=== PATIENT | male | born 1975 | race African-American/Black ===

== ENCOUNTER 2017-02-10 18:11 | Emergency (ER) | payer MEDICAID ==
[~2017-02-10] VITALS: Ht 180.3 cm; Wt 122.7 kg
[2017-02-10 19:58] VITALS: BP 134/88
== END 2017-02-10 20:01 | disposition home or self-care (01) ==
LOC: EMS 18:12
DX: R00.2 Palpitations (principal); J45.909 Unspecified asthma, uncomplicated; I10 Essential (primary) hypertension; F15.10 Other stimulant abuse, uncomplicated; F17.210 Nicotine dependence, cigarettes, uncomplicated
CPT/HCPCS: 93005; 99285

== ENCOUNTER 2020-07-23 14:18 | Emergency (ER) | payer MEDICAID, OTHER ==
[~2020-07-23] VITALS: Ht 180.3 cm; Wt 137.3 kg
[2020-07-23] MEDS ORDERED: PERTUSS(ACELL),DIPH,TET VAC/PF 0.5 ML VIAL IM ONE (15:00)
[2020-07-23] MEDS ORDERED: BUPIVACAINE HCL/PF 0.25% 10 ML VIAL INJ ONE (15:45)
[2020-07-23] MEDS ORDERED: LIDOCAINE 1% 10 ML VIAL INJ ONE (15:45)
[2020-07-23] MEDS ORDERED: BACITRACIN 0.9 GM PACKET OINTMENT TP ONE (16:15)
[2020-07-23 16:35] VITALS: BP 123/78
== END 2020-07-23 16:43 | disposition home or self-care (01) ==
LOC: EMS 14:20
DX: S61.211A Laceration without foreign body of left index finger without damage to nail, initial encounter (principal); J45.909 Unspecified asthma, uncomplicated; F17.290 Nicotine dependence, other tobacco product, uncomplicated; I10 Essential (primary) hypertension; F15.90 Other stimulant use, unspecified, uncomplicated; W26.8XXA Contact with other sharp object(s), not elsewhere classified, initial encounter; Y93.89 Activity, other specified; Y92.89 Other specified places as the place of occurrence of the external cause; Y99.8 Other external cause status
CPT/HCPCS: 12002; 73140; 90471; 99283; 90715; J3490 ×2

== ENCOUNTER 2024-12-18 06:42 | Emergency (ER) | payer OTHER ==
[~2024-12-18] VITALS: Ht 180.3 cm; Wt 141.4 kg
[2024-12-18 06:47] VITALS: TEMP 98.3
[2024-12-18 07:09] LABS: BASOPHILS % (AUTO) 0.6 % (0.0-2.0); EOSINOPHILS % (AUTO) 1.4 % (1.0-6.0); HEMATOCRIT 45.5 % (41-53); HEMOGLOBIN 14.9 g/dL (13.5-17.5); LYMPHOCYTES # (AUTO) 2.3 K/uL (1.0-4.8); LYMPHOCYTES % (AUTO) 29.5 % (22.0-44.0); MEAN CORPUSCULAR HEMOGLOBIN 31.2 pg (26.0-34.0); MEAN CORPUSCULAR HGB CONC 32.9 G/dL (31.0-37.0); MEAN CORPUSCULAR VOLUME 95 fL (80-100); MONOCYTES # (AUTO) 0.6 K/uL (0.1-1.0); MONOCYTES % (AUTO) 7.9 % (2.0-9.0); NEUTROPHILS # (AUTO) 4.7 K/uL (1.8-7.7); NEUTROPHILS % (AUTO) 60.6 % (40.0-70.0); PLATELET COUNT (AUTO) 216 K/uL (150-450); RED BLOOD CELL COUNT(AUTO) 4.79 MIL/uL (4.50-5.90); RED CELL DISTRIBUTION WIDTH 15.1 % (11.5-14.5); WHITE BLOOD COUNT (AUTO) 7.7 K/uL (4.5-11.0)
[2024-12-18 07:24] LABS: ANION GAP 6 mmol/L (8-16); CALCIUM, TOTAL 8.3 mg/dL (8.8-10.5); CARBON DIOXIDE 29 mmol/L (22-29); CHLORIDE 110 mmol/L (98-107); CREATININE 0.97 mg/dL (0.60-1.30); GLOMERULAR FILTR. RATE CALC > 60 mL/min (>60); GLUCOSE,RANDOM 121 mg/dL (70-110); POTASSIUM 3.9 mmol/L (3.5-5.1); SODIUM SERUM 145 mmol/L (136-145); UREA NITROGEN, BLOOD 14 mg/dL (7-18)
[2024-12-18 07:33] LABS: TROPONIN I-HIGH SENSITIVITY 7 ng/L (<76)
[2024-12-18] MEDS ORDERED: METO25 PO (09:48)
[2024-12-18] MEDS: METOPROLOL TARTRATE 25 MG TABLET PO ONE (10:06)
[2024-12-18 10:10] VITALS: BP 148/96; PULSE 71; RESP 16; O2SAT 100
== END 2024-12-18 10:15 | disposition home or self-care (01) ==
LOC: EMS 06:43
DX: I47.19 Other supraventricular tachycardia (principal); R00.2 Palpitations; R42 Dizziness and giddiness; R53.1 Weakness; F15.10 Other stimulant abuse, uncomplicated; I10 Essential (primary) hypertension; J45.909 Unspecified asthma, uncomplicated; F17.290 Nicotine dependence, other tobacco product, uncomplicated
CPT/HCPCS: 71045; 80048; 84484; 85025; 93005; 99291; 36415-L1; 36415-TC